=== PATIENT | female | born 1970 | race Caucasian/White ===

== ENCOUNTER → 2016-09-03 | Outpatient (CLI) | payer OTHER ==
--- NOTE | 2016-09-03 09:19 | MM ---
Reason for exam: clinical finding. Baseline mammogram. Indicated problem(s): palpable abnormality and lump or thickening in the left breast. Physical Findings: Nurse Summary: 1.5cm soft, movable lesion (nurse annie). MG 3D Diag Mammo W/Cad HERMELINDO Bilateral CC and MLO view(s) were taken. There are scattered fibroglandular densities. Asymmetric breast tissue in the retroareolar left breast. These results were verbally communicated with the patient and result sheet given to the patient on 09/03/16. ASSESSMENT: Incomplete: need additional imaging evaluation, BI-RAD 0 RECOMMENDATION: Ultrasound of the left breast.
--- NOTE | 2016-09-03 09:21 | USB ---
Reason for exam: clinical finding. Indicated problem(s): palpable abnormality and lump or thickening in the left breast. US Breast BILAT Right breast ultrasound including all four quadrants, the retroareolar region and axilla demonstrates a 0.3 x 0.2 x 0.4cm oval lesion too small to characterize at 9 o'clock, questionable cystic cluster. Left breast ultrasound including all four quadrants, the retroareolar region and axilla demonstrates a 1.9 x 1.7 x 1.8cm round, cystic lesion with debris at 12 o'clock. These results were verbally communicated with the patient and result sheet given to the patient on 09/03/16. ASSESSMENT: Suspicious, BI-RAD 4 Probably benign, BI-RAD 3 finding in the right breast. Suspicious, BI-RAD 4 abnormality in the left breast. RECOMMENDATION: Aspiration of the left breast. Called Dr. West with mammographic findings and has scheduled an appointment for the patient for 09/10/16 at 10:[address] Freeman. PRELIMINARY REPORT CALLED AND FAXED TO DR. FREEMAN ON 09/03/16 AT 300/TP. Follow-up diagnostic mammogram of the right breast in 3 months.
== END | disposition home or self-care (01) ==
LOC: RADUSWWP 07:04
PROVIDERS: ATTEND Family Medicine
DX: N63 Unspecified lump in breast (principal)
CPT/HCPCS: 76641; G0204; G0279

== ENCOUNTER → 2016-10-30 | Day surgery (SDC) | payer OTHER ==
[~2016-10-30] MED LIST: ALPRAZolam 0.25 MG TAB ONE; LIDOCAINE 1% INJ 10MG/ML (20 ML MDV) ONE; SODIUM BICARB 4% 5 ML VIAL (0.48 MEQ/ML) ONE
--- NOTE | 2016-10-30 13:14 | USB ---
EXAMINATION TYPE: US breast aspiration single LT, MG postprocedural diagnostic mammo LT wo CAD DATE OF EXAM: 10/30/2016 12:43 PM CLINICAL HISTORY: 46-year-old female N63 Breast Lump Mass. TECHNIQUE: Ultrasound guided left breast aspiration. COMPARISON: NONE FINDINGS: The procedure of ultrasound guided core biopsy was explained to the patient. Benefits, alternatives, and risks were discussed. An informed consent was then obtained. The 1.7 x 1.7 x 1.4 cm round circumscribed cystic lesion is redemonstrated at the 12:00 subareolar region. The overall appearance is unchanged with uniform internal low-level echoes. This was targeted for aspiration. The patient was placed in supine positioning for imaging and for the procedure. The overlying skin was prepped and draped in usual sterile fashion. Lidocaine buffered with bicarbonate was used as anesthetic into the skin and subcutaneous tissue up to area of concern in the left breast. Under ultrasound guidance, an 18-gauge standard needle was advanced into the lesion with aspiration yielding 2 mL of thick brown fluid. This was labeled and sent for laboratory analysis. Complete lesion collapsed with noted following the aspiration. A ribbon clip was placed. Postprocedure mammogram shows interval resolution of the large subareolar lesion with ribbon clip in place. The patient tolerated the procedure well without any immediate complication. The patient was kept in the radiology department for short stay after the procedure and then discharged home in stable condition. IMPRESSION: Successful, uncomplicated ultrasound guided left breast cyst aspiration; a benign complicated cyst is suggested. Cytology pending. Pathology Results: Benign BREAST, LEFT, ULTRASOUND GUIDED CYST ASPIRATE: BLOOD AND CYST MACROPHAGES CONSISTENT WITH CYST CONTENTS. RECOMMEND CLINICAL AND IMAGING CORRELATION AND FOLLOW UP INDICATED. Recommendation Follow up ultrasound of the left breast in 6 months. RAJI
== END ==
LOC: RADUSWWP 11:12
PROVIDERS: ATTEND Surgery
DX: N60.02 Solitary cyst of left breast (principal); Z88.0 Allergy status to penicillin; Z88.2 Allergy status to sulfonamides
CPT/HCPCS: 88108; 88305; 76942; 19000; G0206; A4648; J2001

== ENCOUNTER 2020-08-31 14:28 | Emergency (ER) | payer BC, OTHER ==
[2020-08-31 14:45] VITALS: BP 145/98; PULSE 99; RESP 20; TEMP 98.6
[2020-08-31] MEDS ORDERED: DIPH,PERTUS(ACELL)TETVAC-LF 0.5 ML VIAL IM ONE (14:49)
[2020-08-31] MEDS ORDERED: LIDOCAINE 1% INJ 10MG/ML (20 ML MDV) SQ ONE (14:49)
--- NOTE | 2020-08-31 15:10 | ED ---
Skin/Abscess/FB HPI - General Chief complaint: Skin/Abscess/Foreign Body Stated complaint: L Hand Injury Time Seen by Provider: 08/31/20 14:47 Source: patient, RN notes reviewed Mode of arrival: ambulatory Limitations: no limitations - History of Present Illness Initial comments: 50-year-old female presents emergency Department chief complaint of staple in her left hand. Patient states she is stable a plastic to a chicken coop and states that she actually staple into her hand. Patient states her tetanus is not up-to-date. Denies any paresthesias no decreased range of motion patient offers no other complaints. - Related Data Previous Rx's Medication Instructions Recorded Cephalexin [Keflex] 500 mg PO Q8HR #21 cap 08/31/20 Allergies Allergy/AdvReac Type Severity Reaction Status Date / Time Penicillins Allergy Unknown Verified 08/31/20 14:46 sulfamethoxazole Allergy Unknown Verified 08/31/20 14:46 [From Bactrim] trimethoprim [From Bactrim] Allergy Unknown Verified 08/31/20 14:46 Review of Systems ROS Statement: Those systems with pertinent positive or pertinent negative responses have been documented in the HPI. ROS Other: All systems not noted in ROS Statement are negative. Past Medical History Past Medical History: Diabetes Mellitus, Hypertension History of Any Multi-Drug Resistant Organisms: None Reported Additional Past Surgical History / Comment(s): Ablation Past Psychological History: Anxiety Smoking Status: Never smoker Past Alcohol Use History: None Reported Past Drug Use History: None Reported General Exam Limitations: no limitations General appearance: alert, in no apparent distress Head exam: Present: atraumatic, normocephalic, normal inspection Neck exam: Present: normal inspection, full ROM. Absent: tenderness, meningismus, lymphadenopathy Respiratory exam: Present: normal lung sounds bilaterally. Absent: respiratory distress, wheezes, rales, rhonchi, stridor Cardiovascular Exam: Present: regular rate, normal rhythm, normal heart sounds. Absent: systolic murmur, diastolic murmur, rubs, gallop, clicks Extremities exam: Present: other (Left hand palmar aspect and the first and second digit there is a noted stable, no active bleeding Is less than 2 seconds neurovascular intact) Course Vital Signs 08/31/20 14:42 Temperature 98.6 F Pulse Rate 99 Respiratory 20 Rate Blood Pressure 145/98 O2 Sat by Pulse 98 Oximetry Procedures - Forgein Body Removal Soft Tissue Consent Obtained: verbal consent Site: hand (Left) Anesthetic Used: lidocaine 1% Amount (mLs): 5 Foreign Body Suspected: Metal Foreign Body Removed: yes Foreign Body Removal Technique: Instrumentation Patient Tolerated Procedure: well, no complications Medical Decision Making - Medical Decision Making Foreign body was removed from left hand with no comp patients. Patient's tetanus is updated. Patient's hand was cleaned, bacitracin applied we discussed return parameters. Patient was placed on prophylactic antibiotics. Disposition Clinical Impression: Foreign body of left hand Disposition: HOME SELF-CARE Condition: Stable Instructions (If sedation given, give patient instructions): Soft Tissue Foreign Body (ED) Additional Instructions: Please return to the Emergency Department if symptoms worsen or any other concerns. Prescriptions: Cephalexin [Keflex] 500 mg PO Q8HR #21 cap Is patient prescribed a controlled substance at d/c from ED?: No Referrals: None,Stated [Primary Care Provider] - 1-2 days Time of Disposition: 15:10
[2020-08-31] MEDS ORDERED: BACITRACIN OINT 1 EACH PACKET TOPICAL ONE (15:12)
--- NOTE | 2020-08-31 15:14 | XR ---
EXAMINATION TYPE: XR hand limited LT DATE OF EXAM: 08/31/2020 COMPARISON: None HISTORY: Foreign body TECHNIQUE: Three-view left hand FINDINGS: No acute fractures or dislocations are evident. Degenerative joint changes are present. There is a radiopaque foreign body within the index finger metacarpal proximal phalanx joint space. T his appears to have osseous involvement. Lateral view is somewhat limited. IMPRESSION: 1. Radiopaque foreign body at the index finger metacarpal phalangeal joint space
== END 2020-08-31 15:16 | disposition home or self-care (01) ==
LOC: EC 14:28
DX: S60.552A Superficial foreign body of left hand, initial encounter (principal); Z23 Encounter for immunization; Z88.0 Allergy status to penicillin; Z88.1 Allergy status to other antibiotic agents; Z88.2 Allergy status to sulfonamides; W29.8XXA Contact with other powered hand tools and household machinery, initial encounter; Y92.89 Other specified places as the place of occurrence of the external cause
CPT/HCPCS: 73120; 90715; 99283; 90471; J2001